=== PATIENT | male | born 1990 | race Caucasian/White ===

== ENCOUNTER 2023-12-02 11:10 | Outpatient (AMB) | payer OTHER, SELFPAY ==
--- NOTE | 2023-12-02 13:10 | A.OFFVISCC_ITS ---
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 and buying several nips during stressful days Reports that a little over a year ago he was drinking a lot as well and does not want to continue to increase his use He denies any tremors or withdrawal sx Denies drinking daily Full substance history obtained by RN and reviewed Recently started on Celexa by PCP, reporting nausea and upset stomach--unable to continue it for more than 3 days Review of Systems Const Reports as per HPI Physical Exam Vital Signs: Last Vital Signs Pulse 71 12/02/23 13:37 Resp 19 12/02/23 13:37 BP 145/60 H 12/02/23 13:37 Oxygen Delivery Method Room Air 12/02/23 13:37 Oxygen Flow Rate 98 12/02/23 13:37 Const General: cooperative and anxious Nutritional Appearance: average body habitus Orientation/consciousness: patient oriented x3 Limitations: no limitations Neuro General: patient oriented x3 Assessment & Plan Assessment & Plan (1) Generalized anxiety disorder: Code(s): F41.1 - Generalized anxiety disorder Category: Medical Plan: * trial Lexapro 5mg QHS * Propranolol 10mg BID PRN for anxiety * discussed implementing and practicing other stress reduction techniques * discussed risk of developing alcohol use disorder * follow up 4 weeks--likely will transition care back to PCP following next appt Medications: New propranolol 10 mg PO BID PRN 14 tabs 0RF anxiety escitalopram oxalate (Lexapro) 5 mg PO BEDTIME 30 tabs 0RF MAT Intake Nursing Intake Reason for visit: AUD Are you currently using?: Yes What are you taking?: 4 nips of vodka When was your last use?: 4 days ago How much?: 4 nips What is your source of income?: Owns his own [employer] business What is your current relationship status?: Lives with his girlfriend Current PCP: Hannah Aguilar Date of last visit: last week 10/2023 Referral Source: Kris Aguilar Details: Patient states he is not drinking everyday, drinks one to two beers if he go's out socially which is not often endorses drinking 4 nips to calm his anxiety and states thats the real issue, my anxiety . Substance Abuse History Substance Abuse History (includes route, frequency and quantity): Cocaine (tried it 3 to 4 years ago), Alcohol (once a week), Marijuana and Tobacco (occasionally) Age of first use: 23 years Social History Do you have a support system?: yes Girlfriend Essie who is here with him Current mode of transportation?: Car/himself Where are you currently residing?: Home LMP: N/A IV Drug Use Have you ever shared needles?: No Have you ever belonged to a needle exchange program?: No Do you buy needles at a pharmacy?: No Have you ever overdosed?: No Have you ever been hospitalized for an overdose?: No Was Naloxone administered?: No Recovery History Have you had any periods of recovery?: Yes What is your longest time in recovery?: 6 months Have you ever had inpatient treatment for your substance abuse disorder?: No Have you been in an inpatient detoxification program?: No Have you been in an inpatient Rehab/[facility] house?: No Have you been in an outpatient Methadone Maintenance program?: No Have you been in an outpatient Suboxone Maintenance program?: No Have you been in an AA/NA support program?: No Have you had a Recovery Support Delicatessen Manager?: No Have you had Peer Support?: No Behavioral Health History Do you have a current provider? If so, who?: no History of self harming thoughts?: No History of homicidal or suicidal intentions?: No Medical Conditions Endocarditis?: No Skin Infection: No Seizure related to withdrawal or overdose: No Head or brain injury: No Hepatitis A (if yes, have you been treated?): No Hepatitis B (if yes, have you been treated?): No Hepatitis C (if yes, have you been treated?): No HIV (if yes, have you been treated?): No TB (if yes, have you been treated?): No Other: No Do you have any chronic pain conditions?: Pt pointing to epigastric region, endorses this has been going on for years , and is exacerbated when he vomit's which he states is when I'm anxious Legal History History of incarceration: No Currently on parole or probation: No Court mandated programs: No Pending court cases: No DCF involvement: No
[2023-12-02 13:37] VITALS: BP 145/60; PULSE 71; RESP 19
== END 2023-12-02 11:45 | disposition home or self-care (01) ==
PROVIDERS: PCP Nurse Practitioner; Visit Provider Nurse Practitioner Psychiatric/Mental Health
DX: F10.90 Alcohol use, unspecified, uncomplicated (principal); F41.1 Generalized anxiety disorder
CPT/HCPCS: 99204

== ENCOUNTER → 2023-12-02 11:10 | Outpatient (BNVA) | payer OTHER, SELFPAY | PROVIDERS: PCP Nurse Practitioner; Visit Provider Nurse Practitioner Psychiatric/Mental Health ==

== ENCOUNTER 2023-12-31 09:32 | Outpatient (AMB) | payer OTHER, SELFPAY ==
--- NOTE | 2023-12-31 09:32 | A.OFFVISCC_ITS ---
Intake Visit Reasons: MAT Tele Allergies No Known Allergies Allergy (Verified 12/02/23 11:43) HPI HPI MAT Tele: Details: Patient presents for follow up via teleahealth Started Lexapro 5mg at in the AM --tolerating medication Feeling less reactive -would like to increase dose Took propranolol only 2-3x and found it to be helpful Started Naltrexone about a week ago. Taking it at night Finds it helpful with cravings Review of Systems Const Reports as per HPI and Reports no additional complaints Telehealth Telehealth Telehealth Platform: Telephone Location of provider rendering services: practice address Location of patient: address on file Patient Identification confirmed using: Name, : Yes Telehealth method: voice only Patient verbally consented to treatment: Yes Patient verbally consented to billing insurance company: Yes Minutes spent on Phone/Video with Pt.: 20 Assessment & Plan Assessment & Plan (1) Generalized anxiety disorder: Code(s): F41.1 - Generalized anxiety disorder Category: Medical Plan: * increase lexapro to 10mg QD * continue naltrexone 50mg daily * follow up 4 weeks Medications: New escitalopram oxalate (Lexapro) 10 mg PO DAILY 30 tabs 0RF Discontinued escitalopram oxalate (Lexapro) Discontinued Reason: Doctor's Order 5 mg PO BEDTIME 30 tabs 0RF
== END 2023-12-31 10:08 | disposition home or self-care (01) ==
PROVIDERS: PCP Nurse Practitioner; Visit Provider Nurse Practitioner Psychiatric/Mental Health
DX: F10.90 Alcohol use, unspecified, uncomplicated (principal); F41.1 Generalized anxiety disorder
CPT/HCPCS: 99214

== ENCOUNTER → 2023-12-31 09:32 | Outpatient (BNVA) | payer OTHER, SELFPAY | PROVIDERS: PCP Nurse Practitioner; Visit Provider Nurse Practitioner Psychiatric/Mental Health ==

== ENCOUNTER 2024-01-21 09:35 | Outpatient (AMB) | payer OTHER, SELFPAY ==
--- NOTE | 2024-01-21 09:36 | MHC.AM.SUB ---
Intake Visit Reasons: MAT Tele Allergies No Known Allergies Allergy (Verified 12/02/23 11:43) [facility] MAT Tele: Details: Patient presents for follow up via telehealth tolerating increase in medications lexapro increase beneficial anxiety much more manageable naltrexone effective in managing cravings Review of Systems Const Reports as per [facility] Telehealth Telehealth Telehealth Platform: Telephone Location of provider rendering services: practice address Location of patient: address on file Telehealth method: voice only Patient verbally consented to treatment: Yes Patient verbally consented to billing insurance company: Yes Minutes spent on Phone/Video with Pt.: 15 Assessment & Plan Assessment & Plan (1) Generalized anxiety disorder: Code(s): F41.1 - Generalized anxiety disorder Category: Medical Plan: continue lexapro at current dose continue maltrexone continue propranolol prn follow up 6 weeks Medications: Changed From naltrexone take 1/2 tab daily for three adam then increase to one tab daily 50 mg PO DAILY 30 tabs 0RF To naltrexone 50 mg PO DAILY 90 tabs 0RF Refilled escitalopram oxalate (Lexapro) 10 mg PO DAILY 90 tabs 0RF
== END 2024-01-21 11:18 | disposition home or self-care (01) ==
PROVIDERS: PCP Nurse Practitioner; Visit Provider Nurse Practitioner Psychiatric/Mental Health
DX: F10.90 Alcohol use, unspecified, uncomplicated (principal); F41.1 Generalized anxiety disorder
CPT/HCPCS: 99213

== ENCOUNTER → 2024-01-21 09:35 | Outpatient (BNVA) | payer OTHER, SELFPAY | PROVIDERS: PCP Nurse Practitioner; Visit Provider Nurse Practitioner Psychiatric/Mental Health ==

== ENCOUNTER 2024-03-31 08:49 | Outpatient (AMB) | payer OTHER, SELFPAY ==
--- NOTE | 2024-03-31 08:50 | MHC.AM.SUB ---
Intake Visit Reasons: MAT Tele Allergies No Known Allergies Allergy (Verified 12/02/23 11:43) [facility] MAT Tele: Details: Patient presents for follow up via telehealth Reports increase in anxiety recently ---increased dose to 1.5 tabs (lexapro) found improvement with increase in dose Naltrexone 50mg daily Alcohol has improved with naltrexone --not drinking alone, feels more able to drink in moderation and for enjoyment as opposed to a stress response --inquiring if increasing dose is okay, agustina in times of stress Sleep has been okay Review of Systems Const Reports as per [facility] Telehealth Telehealth Telehealth Platform: Telephone Location of provider rendering services: practice address Location of patient: address on file Patient Identification confirmed using: Name, : Yes Telehealth method: voice only Patient verbally consented to treatment: Yes Patient verbally consented to billing insurance company: Yes Minutes spent on Phone/Video with Pt.: 15 Assessment & Plan Assessment & Plan (1) Generalized anxiety disorder: Code(s): F41.1 - Generalized anxiety disorder Category: Medical Plan: increase lexapro to 15mg QD naltrexone dose increase to 50mg BID as needed follow up 8 weeks Medications: New escitalopram oxalate (Lexapro) 15 mg (1.5 x 10 mg) PO DAILY 135 tabs 0RF Refilled naltrexone 50 mg PO DAILY 90 tabs 0RF Discontinued escitalopram oxalate (Lexapro) Discontinued Reason: Doctor's Order 10 mg PO DAILY 90 tabs 0RF
== END 2024-03-31 09:45 | disposition home or self-care (01) ==
PROVIDERS: PCP Nurse Practitioner; Visit Provider Nurse Practitioner Psychiatric/Mental Health
DX: F10.90 Alcohol use, unspecified, uncomplicated (principal); F41.1 Generalized anxiety disorder
CPT/HCPCS: 99214